=== PATIENT | female | born 1935 | race Caucasian/White ===

== ENCOUNTER → 2019-04-29 | Outpatient (CLI) | payer OTHER, BC ==
[~2019-04-29] MED LIST: FAMCICLOVIR250 MG PO; NORCO 5-325 TA1 EACH PO
== END ==
LOC: SJCVCIMAG 12:05
DX: I65.23 Occlusion and stenosis of bilateral carotid arteries (principal); I35.0 Nonrheumatic aortic (valve) stenosis; I44.7 Left bundle-branch block, unspecified; R94.31 Abnormal electrocardiogram [ECG] [EKG]; I25.10 Atherosclerotic heart disease of native coronary artery without angina pectoris; E11.9 Type 2 diabetes mellitus without complications; I10 Essential (primary) hypertension; E78.00 Pure hypercholesterolemia, unspecified

== ENCOUNTER → 2019-09-09 | Outpatient (CLI) | payer OTHER, BC | LOC: SJCVC 13:54 | PROVIDERS: ATTEND Internal Medicine Cardiovascular Disease | DX: R94.31 Abnormal electrocardiogram [ECG] [EKG] (principal); I35.0 Nonrheumatic aortic (valve) stenosis; I25.10 Atherosclerotic heart disease of native coronary artery without angina pectoris; E11.9 Type 2 diabetes mellitus without complications; E78.00 Pure hypercholesterolemia, unspecified; I10 Essential (primary) hypertension; I65.23 Occlusion and stenosis of bilateral carotid arteries; F41.9 Anxiety disorder, unspecified; M54.2 Cervicalgia; E78.5 Hyperlipidemia, unspecified; Z79.899 Other long term (current) drug therapy ==

== ENCOUNTER → 2019-09-18 | Outpatient (CLI) | payer OTHER, BC ==
[~2019-09-18] MED LIST changes: +ASA81BEC PO; +CARVEDILOL12.5 MG PO; +CLOPIDOGREL75 MG PO; +FISH OIL 1,0001 EAC9 PO; +GLIMEPIRIDE4 MG PO; +GLUCOPHAGE1000 MG PO; +HYDROCHLOROTHIA25 M2 PO; +JANUVIA50 MG PO; +NORVASC 2.5 MG2.5 M1 PO; +ROSUVASTATIN CA20 MG PO; +TRAMADOL 50 MG50 MG PO; +XANAX 0.25 MG0.25 MG PO
== END ==
LOC: SJCVCIMAG 09:13
PROVIDERS: ATTEND Internal Medicine Cardiovascular Disease
DX: I44.7 Left bundle-branch block, unspecified (principal); I49.3 Ventricular premature depolarization; I25.10 Atherosclerotic heart disease of native coronary artery without angina pectoris; E78.5 Hyperlipidemia, unspecified; I10 Essential (primary) hypertension; Z79.899 Other long term (current) drug therapy

== ENCOUNTER 2019-09-23 07:58 | Outpatient (CLI) | payer OTHER, BC ==
[~2019-09-23] VITALS: Ht 167.6 cm; Wt 73.0 kg
[~2019-09-23 07:58] MED LIST changes: -ASA81BEC PO; -CARVEDILOL12.5 MG PO; -CLOPIDOGREL75 MG PO; -FISH OIL 1,0001 EAC9 PO; -GLIMEPIRIDE4 MG PO; -GLUCOPHAGE1000 MG PO; -HYDROCHLOROTHIA25 M2 PO; -JANUVIA50 MG PO; -NORVASC 2.5 MG2.5 M1 PO; -ROSUVASTATIN CA20 MG PO; -TRAMADOL 50 MG50 MG PO; -XANAX 0.25 MG0.25 MG PO
[2019-09-23 08:32] LABS: HEMATOCRIT 38.9 % (37.0-47.0); HEMOGLOBIN 13.3 gm/dL (12.0-15.0); MCH 30.8 pg (26.0-34.0); MCHC 34.3 g/dL (28.0-37.0); RBC 4.33 mil/uL (4.20-5.00); RDW 14.8 % (10.5-14.5); WBC 9.6 thou/uL (4.0-11.0)
--- NOTE | 2019-09-23 08:34 | EKG ---
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1935 Requested By: Dani Macario Order Number: [id number] MD: Christopher Corral Measurements Intervals [place] Rate: 58 P: 70 WV: 210 QRS: -50 QRSD: 152 T: 120 QT: 458 QTc: 450 Interpretive Statements Sinus rhythm Left bundle branch block Compared to ECG 11/18/2005 08:58:57 No significant changes Electronically Signed On 09-23-2019 8:34:36 CDT by Christopher Corral [email or web address] <ELECTRONICALLY SIGNED> By: Christopher Corral MD, [facility] 09/23/19 0834 4 4 Christopher Corral MD, [facility] /EPI
[2019-09-23 08:40] VITALS: BP 149/54
[2019-09-23 08:42] LABS: CALCIUM 9.1 mg/dL (8.5-10.1); CREATININE 0.8 mg/dL (0.6-1.0)
[2019-09-23] MEDS ORDERED: XANAX 0.25 MG0.25 MG PO (08:53)
[2019-09-23] MEDS ORDERED: ASA81BEC PO (08:54)
[2019-09-23] MEDS ORDERED: GLIMEPIRIDE4 MG PO (08:55)
[2019-09-23] MEDS ORDERED: NORVASC 2.5 MG2.5 M1 PO (08:55)
[2019-09-23] MEDS ORDERED: HYDROCHLOROTHIA25 M2 PO (08:56)
[2019-09-23] MEDS ORDERED: GLUCOPHAGE1000 MG PO (08:56)
[2019-09-23] MEDS ORDERED: FISH OIL 1,0001 EAC9 PO (08:57)
[2019-09-23] MEDS ORDERED: ROSUVASTATIN CA20 MG PO (08:57)
[2019-09-23] MEDS ORDERED: JANUVIA50 MG PO (08:58)
[2019-09-23] MEDS ORDERED: TRAMADOL 50 MG50 MG PO (08:58)
[2019-09-23] MEDS ORDERED: CARVEDILOL12.5 MG PO (08:59)
--- NOTE | 2019-09-23 15:00 | NUR ---
pt up to bsc and voided large amount clear yellow urine. right groin remains stable.
[2019-09-23 16:45] VITALS: BP 147/60
--- NOTE | 2019-09-23 16:57 | CATHLAB ---
[facility] [place] [place] [address] INVASIVE PROCEDURE REPORT Name: KATHRIN MINOR Room #: 219-P [facility] M.R.#: [id number] Admission: 09/23/19 Attend Phys: Dani Macario MD, Discharge: Date of : 34 Report #: [id number] THIS REPORT FOR: cc: FAM - No family physician/PCP FAM - No family physician/PCP Dani Macario MD [facility] ~ APPROVED REPORT Study performed: 09/23/2019 10:14:58 Patient Details Patient Status: IN Room #: The patient is a 84 year-old female Event Personnel Dani Macario Farm Butcher, Tuan Armas RN RN, Digna Wallace RTR, JANNETTE Scrub, Carey Barajas RTR Scrub, Jazmine Birch RT(R)() Monitor, Kelsi Jean Monitor Procedures Performed Art Access - R femoral artery* Left Heart Cath w/or w/o Coronaries 3385247 LHC , Left Heart CatheterizationAortogram Abdominal Peripheral Angio 894643 SERA Place w/wo Plasty Single LAD 615775 Hemostasis w/ Mynx 28190 Initial Mod Sed Same Phys/QHP Gr5y 211689 98228 Mod Sed Same Phys/QHP Ea 235365 Procedure Narrative The Right Groin^ was infiltrated with 1% Lidocaine subcutaneous anesthesia. A PINNACLE 6FR Sheath #[id number] sheath was inserted into the RFA 6F^. Coronary angiography was performed using coronary diagnostic catheters. The right coronary system was accessed and visualized with a JR4 catheter. The left coronary system was accessed and visualized with a JL5 catheter. The left ventricle was accessed and visualized with a PIGTAIL catheter. There was no hematoma. Intraoperative Conscious Sedation Sedation start time: 10:31 Case end Time: 11:40 Fentanyl 50 mcg Versed 1 mg Fluoro Time: 6.48 minutes Dose: DAP 4141.40 cGycm2 549 mGy Contrast Type and Amount: Omnipaque 165 ml [facility] [place] [place] [address] INVASIVE PROCEDURE REPORT Name: KATHRIN MINOR Room #: 219-P [facility]#: [id number] Admission: 09/23/19 Attend Phys: Dani Macario, Discharge: Date of : 34 Report #: [id number] Hemodynamics The aortic pressure is 152/59 mmHg with a mean of 81 mmHg. The left ventricular pressure is 173/3 mmHg with a mean of mmHg. The left ventricular end diastolic pressure is 18 mmHg. PCI Technique Lesion Percutaneous coronary intervention was performed on the proximal left anterior descending artery segment. A LAUNCHER 6FR EBU 3.5 #[id number] Guide Catheter was used to engage the ostium. A Luge Wire .014 x 182CM #[id number] Interventional Guidewire was used to cross the lesion. BALLOON DILATION A Balloon catheter Sprinter OTW 2.5 x 12 #[id number] was inserted and inflated up to 6atm for 9seconds. Additional Inflation: 10.00atm for 25seconds. Additional Inflation: 14.00atm for 31seconds. STENT DEPLOYMENT A drug-eluting stent RESOLUTE CAMPBELL OTW 2.75 X 12 #[id number] was inserted and inflated up to 16.00atm for 30seconds. POST STENT DEPLOYMENT BALLOON DILATION A Balloon catheter TREK NC OTW 3.0 X 12 #[id number] was inserted and inflated up to 16.00atm for 30seconds. Conclusion 1. Successful PTCA stent of a subtotal proximal LAD to 0% with placement of a 2.75 x 12 [place] postdilated 3.1 mm AMBER grade III flow mild distal disease and previously stented segment of the proximal LAD and calcification distally. Ostial LAD of 40%. #2 left main Short moderate in size free of disease moderately calcified #3 large dominant circumflex artery with an eccentric lesion of 70% proximally significant calcified segment may be underestimated preserved distal vessel which is large and briskly filling a smaller left side PDA and large distal OM system #4 small nondominant right coronary artery widely patent #5 normal left jugular size and systolic function ejection fraction 50 to 55% #6 abdominal aortogram reveals mild to moderate aortic ectasia but no significant aneurysm formation. Brisk distal flow moderately calcified lara Recommendations and plan: Continue aggressive risk factor modification. Dual antiplatelet therapy has been initiated. Patient [facility] [address] [place] [address] INVASIVE PROCEDURE REPORT Name: KATHRIN MINOR Room #: 219-P REG [facility].R.#: [id number] Admission: 09/23/19 Attend Phys: Dani Macario, Discharge: Date of : 34 Report #: [id number] is hemodynamically stable and pain-free upon transfer to CCU to follow post coronary stent protocol. <ELECTRONICALLY SIGNED> By: Dani Macario MD, FACC 09/23/191656 56 56 Dani Macario MD, FACC /INF
--- NOTE | 2019-09-23 17:43 | NUR ---
PT CARE ASSUMED APPROX 1630. ASSESSMENT CHARTED. PT CAME FULLY RECOVERED POST CATH FROM SITE SAFETY REPRESENTATIVE. RIGHT GROIN SITE C/D/I. VSS. PT UP WITH STEADY GAIT. POC REVIEWED WITH PT AND SPOUSE. BOTH DENY QUESTIONS OR CONCERNS REGARDING POC. NO DISTRESS NOTED.
[2019-09-23 20:40] VITALS: BP 135/39
[2019-09-23 23:25] VITALS: BP 138/55
[2019-09-24 05:30] VITALS: BP 132/40
[2019-09-24 06:09] LABS: HEMATOCRIT 37.3 % (37.0-47.0); HEMOGLOBIN 12.6 gm/dL (12.0-15.0); MCH 30.5 pg (26.0-34.0); MCHC 33.7 g/dL (28.0-37.0); MCV 90.4 fL (80.0-100.0); RBC 4.12 mil/uL (4.20-5.00); WBC 9.1 thou/uL (4.0-11.0)
[2019-09-24 06:31] LABS: ALBUMIN 3.5 g/dL (3.4-5.0); ANION GAP 9 mmol/L (7-16); BUN 21 mg/dL (7-18); CALCIUM 8.4 mg/dL (8.5-10.1); CHLORIDE 103 mmol/L (98-107); CO2 26 mmol/L (21-32); CREATININE 0.7 mg/dL (0.6-1.0); GLUCOSE 137 mg/dL (74-106); POTASSIUM 3.4 mmol/L (3.5-5.1); SGOT 10 U/L (15-37); SGPT 18 U/L (30-65); SODIUM 138 mmol/L (136-145); TOTAL BILIRUBIN 0.5 mg/dL (0.2-1.0); TOTAL PROTEIN 6.7 g/dL (6.4-8.2); TROPONIN-I <0.06 ng/mL (<0.06)
[2019-09-24] MEDS ORDERED: CLOPIDOGREL75 MG PO (08:00)
--- NOTE | 2019-09-24 08:07 | NUR ---
SLEPT MOST OF SHIFT. UP AD CHUNG TO COMODE DUE TO DRIBBLING INCONTINENCE. WORKING ON GOALS AND PLAN OF CARE FOR NOC. PROGRESSING TOWARDS DISCHARGE GOALS. O2 PLACED ON AT 0555 PER RT FOR O2 SAT OF 88%. STATES HAD SOME CHEST PRESSURE AT THAT TIME BUT IT WAS LESS THAN A SECOND AND DIDNT RATE A 1 SCORE. CONTINUE TO ASSES. ENCOURAGED TO CALL IF SHE HAS ANY MORE CHEST PRESSURE. CONTINUE TO ASSES.
[2019-09-24 08:18] VITALS: BP 159/53
[2019-09-24 08:40] VITALS: BP 159/53
--- NOTE | 2019-09-24 08:54 | EKG ---
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 : 1935 Requested By: Dani Macario Order Number: [id number] MD: Christopher Corral Measurements Intervals [place] Rate: 50 P: 75 NE: 207 QRS: -67 QRSD: 155 T: 118 QT: 489 QTc: 446 Interpretive Statements Sinus rhythm Left bundle branch block Compared to ECG 09/23/2019 08:25:23 No significant changes Electronically Signed On 09-24-2019 8:54:10 CDT by Christopher Corral [email or web address] <ELECTRONICALLY SIGNED> By: Christopher Corral MD, [facility] 09/24/19 0854 9 9 Christopher Corral MD, [facility] /EPI
--- NOTE | 2019-09-24 10:15 | NUR ---
PT CARE ASSUMED APPROX 0700. ASSESSMENT CHARTED. PT DENIED PAIN AND SOA. VSS. HR LOW AT TIMES BUT PT ASYMPTOMATIC. UP WTIH STEADY GAIT. RIGHT GROIN POST CATH SITE C/D/I. PT DISCHARGED AT THIS TIME. DISCHARGE EDUCTION DONE WITH PT AND DR ARAUJO. DISCHARGE EDUCATION AND PAPERWORK REVIEWED BY THIS NURSE WITH PT. PT DENIED QUESTIONS OR CONCERNS REGARDING POST HOSPITAL CARES. IV OUT, TELE OFF. PT ESCORTED OUT APPROX 10 MIN VIA WHEELCHAIR.
== END 2019-09-24 10:15 | disposition home or self-care (01) ==
LOC: CATH 07:58 → 2N 16:32 → CATH 09-24 10:15
PROVIDERS: ATTEND Internal Medicine Cardiovascular Disease
DX: I25.10 Atherosclerotic heart disease of native coronary artery without angina pectoris (principal); I77.811 Abdominal aortic ectasia; I10 Essential (primary) hypertension; E11.9 Type 2 diabetes mellitus without complications; E78.5 Hyperlipidemia, unspecified; E03.9 Hypothyroidism, unspecified; Z98.890 Other specified postprocedural states; Z79.899 Other long term (current) drug therapy; Z98.61 Coronary angioplasty status; Z98.42 Cataract extraction status, left eye; Z98.41 Cataract extraction status, right eye; Z90.710 Acquired absence of both cervix and uterus; Z79.82 Long term (current) use of aspirin
CPT/HCPCS: 10081

== ENCOUNTER → 2019-12-30 | Outpatient (CLI) | payer OTHER, BC ==
[~2019-12-30] MED LIST changes: +ASA81BEC PO; +CARVEDILOL12.5 MG PO; +CLOPIDOGREL75 MG PO; +FISH OIL 1,0001 EAC9 PO; +GLIMEPIRIDE4 MG PO; +GLUCOPHAGE1000 MG PO; +HYDROCHLOROTHIA25 M2 PO; +JANUVIA50 MG PO; +NORVASC 2.5 MG2.5 M1 PO; +ROSUVASTATIN CA20 MG PO; +TRAMADOL 50 MG50 MG PO; +XANAX 0.25 MG0.25 MG PO
== END ==
LOC: SJCVC 10:32
PROVIDERS: ATTEND Internal Medicine Cardiovascular Disease
DX: I25.10 Atherosclerotic heart disease of native coronary artery without angina pectoris (principal); I25.2 Old myocardial infarction; I10 Essential (primary) hypertension; E78.00 Pure hypercholesterolemia, unspecified; E11.9 Type 2 diabetes mellitus without complications; I73.9 Peripheral vascular disease, unspecified; I35.0 Nonrheumatic aortic (valve) stenosis; I44.7 Left bundle-branch block, unspecified; I65.23 Occlusion and stenosis of bilateral carotid arteries

== ENCOUNTER → 2020-03-02 | Outpatient (CLI) | payer OTHER, BC | LOC: SJCVCIMAG 08:51 | PROVIDERS: ATTEND Internal Medicine Cardiovascular Disease | DX: I65.23 Occlusion and stenosis of bilateral carotid arteries (principal); I25.10 Atherosclerotic heart disease of native coronary artery without angina pectoris; I44.7 Left bundle-branch block, unspecified; I77.9 Disorder of arteries and arterioles, unspecified; I65.29 Occlusion and stenosis of unspecified carotid artery; E78.5 Hyperlipidemia, unspecified; E11.9 Type 2 diabetes mellitus without complications; I10 Essential (primary) hypertension; Z79.899 Other long term (current) drug therapy ==

== ENCOUNTER → 2020-04-02 | Outpatient (CLI) | payer OTHER | LOC: SJCVC 13:21 | PROVIDERS: ATTEND Internal Medicine Cardiovascular Disease | DX: R94.31 Abnormal electrocardiogram [ECG] [EKG] (principal); I25.10 Atherosclerotic heart disease of native coronary artery without angina pectoris; I10 Essential (primary) hypertension; E11.9 Type 2 diabetes mellitus without complications; I35.0 Nonrheumatic aortic (valve) stenosis; I65.23 Occlusion and stenosis of bilateral carotid arteries; E78.00 Pure hypercholesterolemia, unspecified; E78.5 Hyperlipidemia, unspecified; Z95.5 Presence of coronary angioplasty implant and graft; Z88.1 Allergy status to other antibiotic agents; Z79.82 Long term (current) use of aspirin; Z79.899 Other long term (current) drug therapy; Z79.84 Long term (current) use of oral hypoglycemic drugs ==

== ENCOUNTER 2020-07-16 14:36 | Inpatient (IN) | payer OTHER ==
[~2020-07-16] VITALS: Ht 167.6 cm; Wt 69.4 kg
--- NOTE | ~2020-07-16 | HC ---
[facility] [place] [address] CONSULTATION Name: KATHRIN MINOR Room #: 203-P ADM IN M.R.#: [id number] Admission: 07/16/20 Attend Phys: Chester Taylor MD Discharge: Date of : 34 Report #: [id number] THIS REPORT FOR: cc: FAM - Family physician unknown FAM - Family physician unknown Dani Macario MD [facility] ~ DOC #: [id number] Dani Macario MD DATE OF SERVICE: 07/16/2020 CARDIOLOGY CONSULTATION HISTORY OF PRESENT ILLNESS: An 85-year-old female well known to myself. Followed for a number of years for coronary artery disease, which has been fairly stable. She has had approximately a week to 10 days of intermittent chest discomfort and had an epigastric character to it. She most recently had an LAD stent, placed a high-grade proximal LAD in September of last year 2019. He has had remote stents placed previously back in 1998, 1999 and 2005. She has fairly well preserved LV function by history. She has had intermittent discomfort and presented to [facility] which is [address], near [place]. She saw her primary care doctor in [place] last week. I think this is more of a GI issue. Nuclear stress test in February in the office showed a small area of ischemia. Her troponin is 3.5 here, slightly elevated there. She is pain free on a heparin drip. She is maintained on Exforge generically 10/160 insulin, baby aspirin, hydrochlorothiazide, metformin, fish oil, rosuvastatin 20, carvedilol 12.5 b.i.d. There are no acute EKG changes. PAST MEDICAL AND SURGICAL HISTORY: Positive for coronary artery disease with prior stents as noted above, hypertension, hypercholesterolemia, diabetes, hypothyroidism, epidural shots, cataract removal, shingles, beast cyst, hysterectomy. SOCIAL HISTORY: , retired. No tobacco or alcohol use. FAMILY HISTORY: Negative for premature coronary artery disease, but there is some cardiac history, she states. REVIEW OF SYSTEMS: Essentially negative except for stated above. LABORATORY DATA: Potassium 3.1, troponin 3.75. Creatinine 1.0. H and H is 12 and 37. PHYSICAL EXAMINATION: GENERAL: She is alert. She is in no discomfort. VITAL SIGNS: Blood pressure 100/60, pulse 60s. HEENT: No xanthelasmas. Oropharynx is clear. [address] [address] CONSULTATION Name: KATHRIN MINOR Room #: 203-P [facility] IN [facility]#: [id number] Admission: 07/16/20 Attend Phys: Chester Taylor MD Discharge: Date of : 34 Report #: [id number] NECK: Shows preserved upstrokes without JVD or bruits. LUNGS: Clear. CARDIAC: Regular rate and rhythm, S1, S2, distant. ABDOMEN: Soft, slightly tender in the epigastric. EXTREMITIES: No edema. Distal pulses diminished. NEUROLOGIC: Nonfocal. SKIN: Warm and dry without xanthoma or ulcer. MUSCULOSKELETAL: Diffuse arthritic changes. ASSESSMENT AND PLAN: 1. Non-ST elevation myocardial infarction. 2. Coronary artery disease with history of multiple prior stents, most recently left anterior descending stent in 09/2019. 3. Hypertension. 4. Hypercholesterolemia. 5. Diabetes. 6. Degenerative joint disease. 7. Reflux. RECOMMENDATIONS AND PLAN: We will continue with heparin drip. We will repeat EKG and troponin in the morning. We will proceed with the catheterization lab to delineate the anatomy and possible intervention. There was review of the old films, shows a moderate stenosis in the circumflex. We will replace a little bit hypokalemia. Thank you for asking me to participate in this patient's care. Dani Macario MD [facility] By: [id number] Dani Macario MD, [facility] /nt
[2020-07-16 17:53] VITALS: BP 90/51
[2020-07-16 18:43] LABS: ABSOLUTE NEUTROPHILS 6.9 thou/uL (1.4-8.2); HEMATOCRIT 37.2 % (37.0-47.0); HEMOGLOBIN 12.3 gm/dL (12.0-15.0); LYMPHOCYTES 18.1 % (24.0-44.0); MCH 29.8 pg (26.0-34.0); MCHC 33.2 g/dL (28.0-37.0); MCV 89.9 fL (80.0-100.0); MONOCYTES 9.7 % (1.0-8.0); PLATELET COUNT 279 thou/uL (150-400); POLYS 69.2 % (36.0-66.0); RBC 4.14 mil/uL (4.20-5.00); WBC 9.9 thou/uL (4.0-11.0)
[2020-07-16 18:52] LABS: ALBUMIN 3.4 g/dL (3.4-5.0); CALCIUM 8.9 mg/dL (8.5-10.1); POTASSIUM 3.1 mmol/L (3.5-5.1); TOTAL BILIRUBIN 0.6 mg/dL (0.2-1.0)
[2020-07-16 19:28] VITALS: BP 100/44
--- NOTE | 2020-07-16 19:44 | NUR ---
PATIENT ADMITTED TO ROOM FROM ANOTHER FACILITY. SHE IS ALERT ORIENTED X4. SHE DOES NOT SEEM TO BE IN PAIN. RESPIRATIONS ARE EVEN NON LABORED. HERE WITH HER. WILL BE NPO TONIGHT.
[2020-07-16] MEDS ORDERED: HYDROCHLOROTHIA25 M1 PO (19:52)
[2020-07-16] MEDS ORDERED: EXFORGE 10-1601 EACH PO (19:52)
[2020-07-16] MEDS ORDERED: AMARYL4 MG PO (19:53)
[2020-07-16] MEDS ORDERED: SYNTHROID100 MC1 PO (19:53)
[2020-07-16] MEDS ORDERED: FISH OIL 1,0001 EAC9 PO (19:54)
[2020-07-16] MEDS ORDERED: LEVEMIR100 UNIT/2 SUBQ (19:54)
[2020-07-16] MEDS ORDERED: B12 ACTIVE1000 MCG PO (19:55)
[2020-07-16 23:36] VITALS: BP 105/55
[2020-07-17 03:40] VITALS: BP 107/58
--- NOTE | 2020-07-17 04:18 | NUR ---
ASSUMED CARE OF PATIENT AT 1900. APTT DRAWN, HEPARIN GTT INITIATED. DR ARAUJO BY TO SEE PATIENT. PLAN FOR CARDIAC CATH IN THE AM. RESTING THROUGH THE NIGHT, NO S/S OF DISTRESS. POC GOALS ESTABLISHED.
[2020-07-17 04:19] LABS: HEMATOCRIT 33.3 % (37.0-47.0); HEMOGLOBIN 11.3 gm/dL (12.0-15.0); MCH 30.2 pg (26.0-34.0); MCHC 33.9 g/dL (28.0-37.0); MCV 89.1 fL (80.0-100.0); RBC 3.74 mil/uL (4.20-5.00); RDW 14.6 % (10.5-14.5); WBC 10.8 thou/uL (4.0-11.0)
[2020-07-17 04:21] LABS: INR 1.09; PROTIME 11.8 Seconds (10.5-12.1)
--- NOTE | 2020-07-17 06:48 | EKG ---
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 : 1935 Requested By: Dani Macario Order Number: [id number] MD: Mt Matt Measurements Intervals [place] Rate: 62 P: 73 MD: 203 QRS: -54 QRSD: 170 T: 131 QT: 474 QTc: 482 Interpretive Statements Sinus rhythm Multiple premature complexes, vent & supraven Left bundle branch block Baseline wander in lead(s) V2 Compared to ECG 09/24/2019 07:30:35 No significant changes Electronically Signed On 07-17-2020 6:48:15 CDT by Mt Matt [email or web address] <ELECTRONICALLY SIGNED> By: Mt Matt MD, [facility] 07/17/20 0648 181 15 Mt Matt MD, [facility] /EPI
[2020-07-17 07:25] VITALS: BP 102/53
--- NOTE | 2020-07-17 08:51 | NUR ---
PATIENT TAKEN TO [facility] AT SHIFT CHANGE FOR PLANNED CARDIAC CATH
[2020-07-17 10:10] VITALS: BP 102/50
--- NOTE | 2020-07-17 11:58 | NUR ---
Case discussed with the care team. Pt had cardiac cath this am with stent, dx NSTEMI. She is on bedrest this afternoon. She is a&ox4 and lives indep at home with her spouse. Nursing to see how she mobilizes this afternoon and order therapy evals if needed. Likely dc home tomorrow with outpt f/u. No cm interventions indicated at this time. Will remain available should needs arise.
--- NOTE | 2020-07-17 12:00 | EKG ---
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 : 1935 Requested By: Dani Macario Order Number: [id number] MD: Mt Matt Measurements Intervals [place] Rate: 71 P: 69 NV: 208 QRS: -67 QRSD: 165 T: 109 QT: 447 QTc: 486 Interpretive Statements Sinus rhythm Nonspecific IVCD with LAD LVH with secondary repolarization abnormality Probable lateral infarct, age indeterminate Anterior infarct, old Baseline wander in lead(s) V4 Compared to ECG 07/16/2020 18:16:15 Intraventricular conduction delay now present Left ventricular hypertrophy now present Early repolarization now present Myocardial infarct finding now present Left bundle-branch block no longer present Electronically Signed On 07-17-2020 12:00:11 CDT by Mt Matt [email or web address] <ELECTRONICALLY SIGNED> By: Mt Matt MD, FACC 07/17/201199 6 6 Mt Matt MD, [facility] /EPI
[2020-07-17 14:22] VITALS: BP 109/49
[2020-07-17 15:20] VITALS: BP 119/57
--- NOTE | 2020-07-17 17:16 | CATHLAB ---
[facility] [place] [address] INVASIVE PROCEDURE REPORT Name: KATHRIN MINOR Room #: 203-P ADM IN M.R.#: [id number] Admission: 07/16/20 Attend Phys: Zach Reese MD Discharge: Date of : 34 Report #: [id number] THIS REPORT FOR: cc: FAM - Family physician unknown FAM - Family physician unknown Dani Macario MD [facility] ~ APPROVED REPORT Study performed: 07/17/2020 07:19:49 Patient Details Patient Status: In-Patient Room #: The patient is a 85 year-old female Event Personnel Dani Macario Veterinary Parasitologist, Arminda Cervantes RN RN, Kelsi Jean Monitor, Digna Wallace RTR, QUILL SKINNER Scrub Procedures Performed Art Access - R femoral artery* Left Heart Cath w/or w/o Coronaries [id number] [facility] Place w/wo Plasty Single LAD 830607 02036 Initial Mod Sed Same Phys/QHP Gr5y 088784 71988 Mod Sed Same Phys/QHP Ea 256657 Hemostasis w/ Mynx Indication Chest pain Procedure Narrative The Right Groin^ was infiltrated with 1% Lidocaine subcutaneous anesthesia. A PINNACLE 6FR Sheath #[id number] sheath was inserted into the RFA^. Coronary angiography was performed using coronary diagnostic catheters. The right coronary system was accessed and visualized with a JR4 catheter. The left coronary system was accessed and visualized with a JL4 catheter. The left ventricle was accessed and visualized with a STR PIG catheter. Left ventriculogram was performed in 30 degree projection. There was no hematoma. Intraoperative Conscious Sedation Sedation start time: 809 Case end Time: 944 Fentanyl 50 mcg Versed 1 mg Fluoro Time: 1507.00 minutes [facility] [address] [address] INVASIVE PROCEDURE REPORT Name: KATHRIN MINOR Room #: 203-P [facility] IN [facility].#: [id number] Admission: 07/16/20 Attend Phys: Zach Reese MD Discharge: Date of : 34 Report #: [id number] Dose: DAP 34712.40 cGycm2 1507 mGy Contrast Type and Amount: Omnipaque 215 ml Hemodynamics The aortic pressure is 104/41 mmHg with a mean of 69 mmHg. The left ventricular pressure is 133/10 mmHg with a mean of mmHg. The left ventricular end diastolic pressure is 48 mmHg. PCI Technique Lesion Percutaneous coronary intervention was performed on the LM. A LAUNCHER 6FR EBU 3.5 #[id number] Guide Catheter was used to engage the LAD ostium. A Luge Wire .014 x 182CM #[id number] Interventional Guidewire was used to cross the lesion. BALLOON DILATION A Balloon catheter Sprinter OTW 2.75 x 12 #[id number] was inserted and inflated up to 10.00atm for 17seconds. Additional Inflation: 18.00atm for 26seconds. Additional Inflation: 16.00atm for 22seconds. STENT DEPLOYMENT A stent RESOLUTE CAMPBELL RX 3.5 X 12 #[id number] was inserted and inflated up to 14.00atm for 35seconds. Additional Inflation: 14atm for 29seconds. POST STENT DEPLOYMENT BALLOON DILATION A Balloon catheter TREK NC OTW 3.75 X 12 #[id number] was inserted and inflated up to 14.00atm for 24seconds. Additional Inflation: 14.00atm for 22seconds. Conclusion #1. Successful PTCA stent of a subtotal proximal LAD lesion between 2 prior stents placement of a 3.5 x 12 resolute [place] postdilated to 3.8 mm AMBER grade III flow. Redilatation of the recently proximal stent placed in September 2019. 50% ostial lesion just prior to the stent exist this is unchanged from prior exam. #2 left main moderately calcified short widely patent giving rise to LAD and circumflex. #3 the circumflex is a large dominant system. Extensive proximal calcification. Just off the left main and then eccentric lesion of 70% which remains unchanged proximally with well-preserved and extensive inferior lateral PDA branches widely patent. #4 small nondominant right coronary system patent. #5 mildly dilated left ventricle with the inferior apex and anterior apical wall being severely hypokinetic. Ejection fraction 30 to 35% range. [facility] [address] [place] [address] INVASIVE PROCEDURE REPORT Name: IVÁNKATHRIN Room #: 203-P [facility] IN M.R.#: [id number] Admission: 07/16/20 Attend Phys: Zach Reese MD Discharge: Date of : 34 Report #: [id number] Recommendations and plan: Continue aggressive risk factor modification. Dual antiplatelet therapy reinitiated. Patient is improved upon transfer to the CCU to follow post coronary stent protocol. <ELECTRONICALLY SIGNED> By: Dani Macario MD, FAC 07/17/201715 15 15 Dani Macario MD, FACC /INF
--- NOTE | 2020-07-17 18:44 | NUR ---
STENT PLACED TO LAD. RIGHT GROIN SITE DRESSING CDI. AREA SOFT. REMAINS ON 2L NC POST CATH. PATIENT DIZZY AND LIGHT HEADED WHEN STANDING UP FOR THE FIRST TIME. BLOOD PRESSURES SOFT. HELD BLOOD PRESSURE MEDICATIONS DUE TO PATIENT SYMPTOMATIC. VOICES NO PAIN OR DISCOMFORT.
[2020-07-17 19:24] VITALS: BP 117/49
--- NOTE | 2020-07-18 03:49 | NUR ---
ASSESSMENTS CHARTED, MEDS CHARTED GIVEN. PATIENT RESTING IN BED DURING SHIFT. HEART ELEVATES WHEN PATIENT IS STANDING. RIGHT GROIN IS CLEAN DRY INTACT AND SOFT. PATIENT RECEIVED A STENT TO HER LED DURING VISIT TO OPERATOR/ASSISTANT FOREMAN DURING DAY. PATIENT C/O TELEMETRY PADS CAUSING HER TO BREAK OUT AND ITCH. CHANGED PADS TO HYPOALLERGENIC PADS. FALL PRECAUTIONS IN PLACE DURING SHIFT.
[2020-07-18 04:28] VITALS: BP 119/57
[2020-07-18 07:38] VITALS: BP 106/50
--- NOTE | 2020-07-18 10:27 | NUR ---
Received awake on bed. Due medications given as prescribed, able to swallow meds w/o difficulty. On O2 at 2lpm via nasal cannula, pt not using O2 at home; tried to wean pt off desaturated to 92-93% on room air- Dr Reese informed re: this- ordered RT saturation rest and exercise. On telemetry; no complains and signs of chest pain, crushing sensation and heaviness. S/P stent placement to LED 07/17- dressing at groin C/D/I. On heart healthy diet, tolerating well; no nausea, no vomiting and no abdominal pain noted. On blood sugar monitoring, taken and recorded accordingly. Pt complaining that she does not have a bowel movement for 1 week; Dr Reese informed re: this- order for Mg citrate obtained; given as prescribed. Contient of bowel and bladder, able to go to the toilet with standby assist and gait belt. With SL at L hand and R AC. With at bedside, update given. No complains of pain made during assessment. To continue monitoring patient.
[2020-07-18 11:25] VITALS: BP 116/45
[2020-07-18 16:20] VITALS: BP 109/52
[2020-07-18 19:52] VITALS: BP 121/53
[2020-07-19 03:32] VITALS: BP 116/52
--- NOTE | 2020-07-19 04:32 | NUR ---
PROGRESS PT A/O X4, UP AD CHUNG AMBULATING WITH STEADY GAIT TO BR. VOIDING QS AND HAD ANOTHER BM, HAD A BOTTLE OF MAG CITRATE TODAY AND HAD 3 GOOD BM'S STATED SHE FEELS IF HER CONSTIPATION HAS RESOLVED. VSS, LUNGS CLEAR TELEMETRY INTACT READING SR WITH A 1ST DEGREE BBB RATES IN 70'S. PT HOPES TO DC HOME TODAY. STILL REPORTING SOA WITH ACTIVITY WEARING 2 LITERS O2 PRN TO HAVE RT O2 SAT STUDIES TODAY WITH REST AND ACTIVITY. CONTINUE POC.
[2020-07-19 04:40] LABS: HEMATOCRIT 32.5 % (37.0-47.0); HEMOGLOBIN 10.9 gm/dL (12.0-15.0); MCH 30.1 pg (26.0-34.0); MCHC 33.5 g/dL (28.0-37.0); MCV 89.9 fL (80.0-100.0); RBC 3.61 mil/uL (4.20-5.00); RDW 14.7 % (10.5-14.5); WBC 9.7 thou/uL (4.0-11.0)
[2020-07-19 04:42] LABS: CALCIUM 9.1 mg/dL (8.5-10.1); CREATININE 0.9 mg/dL (0.6-1.0); POTASSIUM 3.9 mmol/L (3.5-5.1)
[2020-07-19 07:22] VITALS: BP 104/50
[2020-07-19 10:29] VITALS: BP 112/58
[2020-07-19 10:47] VITALS: BP 112/58
[2020-07-19 11:04] VITALS: BP 112/58
--- NOTE | 2020-07-19 11:24 | NUR ---
ASSUMED CARE SHIFT CHANGE. ASSESSMETN CHARTED.MEDS GIVEN .VSS. BP LOW THIS AM BP MEDS HELD. BP STABLE-- MEDS GIVEN. DC ORDERS. DISCUSSED WITH PT AND SPOUSE. COMMUNICATES UNDERSTANDING. PT DENIES CONSTIPATION FEELING. IV RMEOVED TELE REMOVED. PT LEFT UNIT WITH ALL BELONGINGS.
== END 2020-07-19 11:25 | disposition home or self-care (01) | DRG 246 ==
LOC: 2N 14:36
PROVIDERS: Internal Medicine Cardiovascular Disease; ADMIT Hospitalist; ATTEND Hospitalist
PROC: 4A023N7 Measurement of Cardiac Sampling and Pressure, Left Heart, Percutaneous Approach (ICD-10-PCS; principal; 2020-07-17)
PROC: B2111ZZ Fluoroscopy of Multiple Coronary Arteries using Low Osmolar Contrast (ICD-10-PCS; principal; 2020-07-17)
PROC: 027034Z Dilation of Coronary Artery, One Artery with Drug-eluting Intraluminal Device, Percutaneous Approach (ICD-10-PCS; principal; 2020-07-17)
PROC: B2151ZZ Fluoroscopy of Left Heart using Low Osmolar Contrast (ICD-10-PCS; principal; 2020-07-17)
DX: I21.4 Non-ST elevation (NSTEMI) myocardial infarction (principal); I50.31 Acute diastolic (congestive) heart failure; D68.59 Other primary thrombophilia; I25.10 Atherosclerotic heart disease of native coronary artery without angina pectoris; I10 Essential (primary) hypertension; E11.9 Type 2 diabetes mellitus without complications; E03.9 Hypothyroidism, unspecified; E78.00 Pure hypercholesterolemia, unspecified; K21.9 Gastro-esophageal reflux disease without esophagitis; K59.00 Constipation, unspecified; M19.90 Unspecified osteoarthritis, unspecified site; Z91.040 Latex allergy status; Z95.5 Presence of coronary angioplasty implant and graft; Z90.710 Acquired absence of both cervix and uterus; Z79.4 Long term (current) use of insulin; Z79.82 Long term (current) use of aspirin; Z79.899 Other long term (current) drug therapy; Z98.42 Cataract extraction status, left eye; Z98.41 Cataract extraction status, right eye
CPT/HCPCS: 10081

== ENCOUNTER → 2020-11-02 | Outpatient (CLI) | payer OTHER ==
[~2020-11-02] MED LIST changes: +AMARYL4 MG PO; +B12 ACTIVE1000 MCG PO; +EXFORGE 10-1601 EACH PO; +HYDROCHLOROTHIA25 M1 PO; +LEVEMIR100 UNIT/2 SUBQ; +SYNTHROID100 MC1 PO
== END ==
LOC: SJCVCIMAG 08:37
PROVIDERS: ATTEND Internal Medicine Cardiovascular Disease
DX: I65.23 Occlusion and stenosis of bilateral carotid arteries (principal); I35.8 Other nonrheumatic aortic valve disorders; R94.31 Abnormal electrocardiogram [ECG] [EKG]; I25.10 Atherosclerotic heart disease of native coronary artery without angina pectoris; E11.9 Type 2 diabetes mellitus without complications; I44.7 Left bundle-branch block, unspecified; I10 Essential (primary) hypertension; I77.9 Disorder of arteries and arterioles, unspecified; E78.00 Pure hypercholesterolemia, unspecified; Z79.899 Other long term (current) drug therapy; Z88.1 Allergy status to other antibiotic agents; Z79.84 Long term (current) use of oral hypoglycemic drugs